=== PATIENT | female | born 1990 ===

== ENCOUNTER 2018-01-30 19:33 | Emergency (ER) | payer MEDICAID, OTHER ==
[2018-01-30 19:33] VITALS: BMI 27.9
[2018-01-30 19:43] VITALS: PULSE 77; TEMP 98.5; O2SAT 100
--- NOTE | 2018-01-30 20:07 | ED PDOC ---
HPI: Chest Pain Time Seen by Provider: 01/30/18 19:48 Chief Complaint (Nursing): Chest Pain Chief Complaint (Provider): Chest Pain History Per: Patient History/Exam Limitations: no limitations Onset/Duration Of Symptoms: Days (x3) Current Symptoms Are (Timing): Gone Now Additional Complaint(s): 27 year old female presents to ED with complaints of chest pain, p alpitations, nausea, and intermittent shortness of breath for 3 days. She denies any fever, chills, cough, and vomiting. At present, patient reports resolution of symptoms. PCP: Dr. Brenda Mcmanus Past Medical History Reviewed: Historical Data, Nursing Documentation, Vital Signs Vital Signs: Last Vital Signs Temp 98.5 F 01/30/18 19:38 Pulse 77 01/30/18 19:38 Resp 20 01/30/18 19:38 BP 128/76 01/30/18 19:38 Pulse Ox 100 01/30/18 19:38 - Medical History PMH: Gall Bladder Disease ( gallstones) Denies: Chronic Kidney Disease - Surgical History Surgical History: Cholecystectomy (11/23/17), (x2) - Family History Family History: States: Unknown Family Hx - Social History Current smoker - smoking cessation education provided: No Alcohol: None Drugs: Denies - Immunization History Hx Tetanus Toxoid Vaccination: Yes Hx Influenza Vaccination: Yes Hx Pneumococcal Vaccination: Yes - Home Medications Home Medications: Ambulatory Orders Medication Instructions Recorded Amoxicillin/Clavulanate [Augmentin 1 tab PO BID 12/30/17 875 MG-125 MG] Dicyclomine [Bentyl] 20 mg PO TID PRN #12 tab 12/30/17 Famotidine [Pepcid AC] 10 mg PO QN #30 tablet 12/30/17 - Allergies Allergies/Adverse Reactions: Allergies Allergy/AdvReac Type Severity Reaction Status Date / Time latex Allergy RASH Verified 12/30/17 12:37 Review of Systems ROS Statement: Except As Marked, All Systems Reviewed And Found Negative Constitutional: Negative for: Fever, Chills Cardiovascular: Positive for: Chest Pain, Palpitations Respiratory: Positive for: Shortness of Breath. Negative for: Cough Gastrointestinal: Positive for: Nausea. Negative for: Vomiting Physical Exam - Reviewed Nursing Documentation Reviewed: Yes Vital Signs Reviewed: Yes - Physical Exam Appears: Positive for: Non-toxic, No Acute Distress Head Exam: Positive for: ATRAUMATIC, NORMAL INSPECTION, NORMOCEPHALIC Skin: Positive for: Normal Color Eye Exam: Positive for: Normal appearance, EOMI, PERRL ENT: Positive for: Normal ENT Inspection Neck: Positive for: Normal Cardiovascular/Chest: Positive for: Regular Rate, Rhythm, Chest Non Tender Respiratory: Positive for: Normal Breath Sounds. Negative for: Wheezing, Respiratory Distress Gastrointestinal/Abdominal: Positive for: Normal Exam, Soft. Negative for: Tenderness Extremity: Positive for: Normal ROM (upper/lower). Negative for: Pedal Edema, Calf Tenderness Neurologic/Psych: Positive for: Alert, Oriented. Negative for: Motor/Sensory Deficits - Laboratory Results Result Diagrams: 01/30/18 20:30 01/30/18 20:30 - ECG O2 Sat by Pulse Oximetry: 100 (RA) Pulse Ox Interpretation: Normal Medical Decision Making Medical Decision Making: Initial Impression: 27 year old female with chest pain and palpitations. Initial Plan: * EKG * Labs Time: 0 --Labs reviewed: no significant clinical abnormality. Upon provider reevaluation, patient is medically stable and remains asymptomatic in ED. Patient will be discharged home and advised to follow up with PCP for a Holter monitor study. Counseling was provided and all questions were answered regarding diagnosis. There is agreement to discharge plan. Return if symptoms persist or worsen. Clinical Impression: Palpitations Scribe Attestation: Documented by Yenifer Briggs, acting as a scribe for Srinivas Navarro MD. Provider Scribe Attestation: All medical record entries made by the Scribe were at my direction and personally dictated by me. I have reviewed the chart and agree that the record accurately reflects my personal performance of the history, physical exam, medical decision making, and the department course for this patient. I have also personally directed, reviewed, and agree with the discharge instructions and disposition. Disposition - Clinical Impression Clinical Impression: Palpitations - Patient ED Disposition Is Patient to be Admitted: No Counseled Patient/Family Regarding: Studies Performed, Diagnosis, Need For Followup - Disposition Disposition: Routine/Home Disposition Time: 21:40 Condition: STABLE Instructions: Palpitations Forms: [facility] (Z[place]ian) Print Language: ENGLISH
[2018-01-30 20:41] LABS: BASO # 0.1 K/uL (0.0-0.2); EOS # 0.2 K/uL (0.0-0.7); EOS % 2.1 % (0.0-4.0); HEMOGLOBIN 13.5 g/dL (12.0-16.0); LYMPH # 2.8 K/uL (1.0-4.3); LYMPH % 37.5 % (20.0-40.0); MEAN CELL VOLUME 90.8 fl (81.0-99.0); MEAN CORPUSCULAR HEMOGLOBIN 29.3 pg (27.0-31.0); MEAN CORPUSCULAR HGB CONC 32.3 g/dL (33.0-37.0); MEAN PLATELET VOLUME 10.4 fl (7.2-11.7); MONO # 0.4 K/uL (0.0-0.8); MONO % 5.8 % (0.0-10.0); NEUT % 53.6 % (50.0-75.0); NRBC % 0.1 % (0.0-0.0); RBC 4.6 Mil/uL (3.80-5.20); RED CELL DISTRIBUTION WIDTH 14.6 % (11.5-14.5); WHITE BLOOD COUNT 7.5 K/uL (4.8-10.8)
[2018-01-30 20:44] LABS: ALB/GLOB RATIO 1.4 (1.0-2.1); ALBUMIN 4.7 g/dL (3.5-5.0); BLOOD UREA NITROGEN 15 mg/dl (7-17); CALCIUM 9.5 mg/dL (8.4-10.2); GFR NON-AFRICAN AMERICAN > 60
[2018-01-30 21:05] LABS: ALT/SGPT 29 U/L (9-52); AST/SGOT 36 U/L (14-36)
[2018-01-30 21:56] VITALS: RESP 18
[2018-01-30 21:57] VITALS: BP 120/84
== END 2018-01-30 21:27 | disposition home or self-care (01) ==
LOC: H.ER 19:33
DX: R00.2 Palpitations (principal)